=== PATIENT | male | born 1980 | race Caucasian/White ===

== ENCOUNTER 2016-11-11 23:39 | Emergency (ER) | payer SELFPAY ==
[~2016-11-11] VITALS: Ht 170.2 cm; Wt 70.0 kg
[~2016-11-11 23:39] MED LIST: HYDR-3533 PO; IBUP800T23 PO; METH500T3 PO
--- NOTE | 2016-11-11 23:42 | PD ---
HPI Chief Complaint: intoxicated Time Seen by Provider: 23:42 Travel History International Travel<30 days: No Contact w/Intl Traveler<30days: No Traveled to known affect area: No History of Present Illness HPI 36-year-old male came to the emergency room brought by EMS with history of heavy EtOH intoxication. He was found laying on the ground at a public place and was brought in. Patient has slurred speech and says that he only had 4 beers today. He is a chronic alcoholic. No obvious signs of trauma. [facility] Past Medical History Narrative Medical List of his past medical, surgical, social and family history as reviewed from the nursing note. Respiratory: Yes (PNEUMOTHORAX X3 BETWEEN AGE 14-20) Integumentary: Yes (CYSTS) Social History Alcohol Use: Yes (2-3 BEERS DAILY) Tobacco Use: Yes Substance Use: No Allergies-Medications (Allergen,Severity, Reaction): Coded Allergies: No Known Allergies (Unverified , 09/17/15) Comments No known drug allergies. Reported Meds & Prescriptions Reported Meds & Active Scripts Active Lortab 5 mg/325 mg (Hydrocodone/Acetaminophen 5 mg/325 mg) 1 Tab 1 Tab PO Q4H PRN Ibuprofen 800 Mg Tab 800 Mg PO Q6H PRN Robaxin (Methocarbamol) 500 Mg Tab 500 Mg PO QID PRN Narrative Medication List of his home medications reviewed from the nursing note. Review of Systems Except as stated in HPI: all other systems reviewed are Neg Physical Exam Narrative GENERAL: Intoxicated, no obvious distress SKIN: Focused skin assessment warm/dry. HEAD: Atraumatic. Normocephalic. EYES: Pupils equal and round. No scleral icterus. No injection or drainage. ENT: No nasal bleeding or discharge. Mucous membranes pink and moist. NECK: Trachea midline. No JVD. CARDIOVASCULAR: Regular rate and rhythm. No murmur appreciated. RESPIRATORY: No accessory muscle use. Clear to auscultation. Breath sounds equal bilaterally. GASTROINTESTINAL: Abdomen soft, non-tender, nondistended. Hepatic and splenic margins not palpable. MUSCULOSKELETAL: No obvious deformities. No clubbing. No cyanosis. No edema. NEUROLOGICAL: Awake and alert. No obvious cranial nerve deficits. Motor grossly within normal limits. Normal speech. Unable to have a steady gait. PSYCHIATRIC: Appropriate mood and affect; insight and judgment normal. Data Data Last Documented VS Vital Signs Date Time Temp Pulse Resp B/P Pulse Ox O2 Delivery O2 Flow Rate FiO2 11/12/16 06:26 90 18 111/72 99 Room Air 11/12/16 04:36 98.4 Orders Complete Blood Count With Diff (11/11/16 23:45) Comprehensive Metabolic Panel (11/11/16 23:45) Alcohol (Ethanol) (11/11/16 23:45) Sodium Chlor 0.9% 1000 Ml Inj (Ns 1000 M (11/11/16 23:45) Thiamine Inj (Thiamine Inj) (11/11/16 23:45) Labs Laboratory Tests Test 11/11/16 23:55 White Blood Count 5.5 TH/MM3 Red Blood Count 5.02 MIL/MM3 Hemoglobin 13.1 GM/DL Hematocrit 39.7 % Mean Corpuscular Volume 79.2 FL Mean Corpuscular Hemoglobin 26.2 PG Mean Corpuscular Hemoglobin 33.1 % Concent Red Cell Distribution Width 16.9 % Platelet Count 171 TH/MM3 Mean Platelet Volume 7.9 FL Neutrophils (%) (Auto) 43.7 % Lymphocytes (%) (Auto) 41.8 % Monocytes (%) (Auto) 8.2 % Eosinophils (%) (Auto) 5.4 % Basophils (%) (Auto) 0.9 % Neutrophils # (Auto) 2.4 TH/MM3 Lymphocytes # (Auto) 2.3 TH/MM3 Monocytes # (Auto) 0.5 TH/MM3 Eosinophils # (Auto) 0.3 TH/MM3 Basophils # (Auto) 0.0 TH/MM3 CBC Comment DIFF FINAL Differential Comment Sodium Level 144 MEQ/L Potassium Level 3.7 MEQ/L Chloride Level 108 MEQ/L Carbon Dioxide Level 26.8 MEQ/L Anion Gap 9 MEQ/L Blood Urea Nitrogen 7 MG/DL Creatinine 0.70 MG/DL Estimat Glomerular Filtration 128 ML/MIN Rate Random Glucose 87 MG/DL Calcium Level 8.3 MG/DL Total Bilirubin 0.2 MG/DL Aspartate Amino Transf 54 U/L (AST/SGOT) Alanine Aminotransferase 41 U/L (ALT/SGPT) Alkaline Phosphatase 116 U/L Total Protein 8.5 GM/DL Albumin 3.9 GM/DL Ethyl Alcohol Level 483 MG/DL [facility] Medical Decision Making Medical Screen Exam Complete: Yes Emergency Medical Condition: Yes Medical Record Reviewed: Yes Differential Diagnosis Acute alcohol intoxication Narrative Course 1:18 AM blood alcohol level is back and is extremely high. Rest of the blood test result is back and within acceptable limits. Patient is getting a liter IV fluid bolus and IV thiamine. He will stay in the emergency department until he is clinically sober. Procedures EKG Prior to Arrival: No Diagnosis Primary Impression: Acute alcohol intoxication Qualified Code: F10.929 - Acute alcohol intoxication, with unspecified complication Disposition: 01 DISCHARGE HOME Condition: Stable Vin Babcock MD Nov 11, 2016 23:42
[2016-11-11] MEDS ORDERED: THIAMINE INJ 100 MG in SODIUM CHLORIDE 0.9% INJ 100 ML IV ONE (23:45)
[2016-11-11] MEDS ORDERED: SODIUM CHLOR 0.9% 1000 ML INJ 1,000 ML IV ONE (23:45)
[2016-11-12] VITALS: BP 133/82; PULSE 91; RESP 18; TEMP 98.5; O2SAT 99
[2016-11-12 00:25] LABS: AUTOMATED NEUTROPHIL # 2.4 TH/MM3 (1.8-7.7); BASOPHIL % 0.9 % (0.0-2.0); EOSINOPHIL # 0.3 TH/MM3 (0-0.4); EOSINOPHIL % 5.4 % (0.0-4.0); HEMATOCRIT 39.7 % (39.0-51.0); HEMO FLAGS DIFF FINAL; LYMPH % 41.8 % (9.0-44.0); LYMPHOCYTE # 2.3 TH/MM3 (1.0-4.8); MEAN CELL VOLUME 79.2 FL (80.0-100.0); MEAN CORPUSCULAR HEMOGLOBIN 26.2 PG (27.0-34.0); MEAN CORPUSCULAR HGB CONC 33.1 % (32.0-36.0); MONO % 8.2 % (0.0-8.0); NEUT % 43.7 % (16.0-70.0); PLATELET COUNT 171 TH/MM3 (150-450); RED BLOOD COUNT 5.02 MIL/MM3 (4.50-5.90); RED CELL DISTRIBUTION WIDTH 16.9 % (11.6-17.2); WHITE BLOOD COUNT 5.5 TH/MM3 (4.0-11.0)
[2016-11-12 00:40] LABS: ANION GAP 9 MEQ/L (5-15); AST (GOT) 54 U/L (15-37); BICARBONATE 26.8 MEQ/L (21.0-32.0); BLOOD UREA NITROGEN 7 MG/DL (7-18); CHLORIDE 108 MEQ/L (98-107); GLOMERULAR FILTRATION RATE 128 ML/MIN (>89); POTASSIUM 3.7 MEQ/L (3.5-5.1); SODIUM (NA) 144 MEQ/L (136-145)
[2016-11-12 00:41] LABS: ALT (GPT) 41 U/L (12-78)
[2016-11-12 00:45] LABS: ALKALINE PHOSPHATASE 116 U/L (45-117); TOTAL BILIRUBIN ADULT 0.2 MG/DL (0.2-1.0)
[2016-11-12 04:36] VITALS: BP 129/77; PULSE 87; RESP 20; TEMP 98.4; O2SAT 98
[2016-11-12 06:26] VITALS: BP 111/72; PULSE 90; RESP 18; O2SAT 99
== END 2016-11-12 06:40 | disposition home or self-care (01) ==
LOC: NEPE 23:39
DX: F10.129 Alcohol abuse with intoxication, unspecified (principal); Z79.899 Other long term (current) drug therapy; Z72.0 Tobacco use
CPT/HCPCS: 80053; 80307; 85025; 96374; 99284; J3411; J7030

== ENCOUNTER 2016-12-20 11:29 | Emergency (ER) | payer SELFPAY ==
[~2016-12-20] VITALS: Ht 180.3 cm; Wt 60.0 kg
[2016-12-20 11:35] VITALS: BP 147/86; PULSE 110; RESP 15; TEMP 98.9; O2SAT 100
--- NOTE | 2016-12-20 11:38 | PD ---
Physical Exam Time Seen by Provider: 11:36 Narrative 36yo comes in via [facility] for c/o head injury after tripping over something the other days and hitting his head on the corner of a table. +LOC. +vomitng " once or twice." Patient seen in triage. VS reviewed. Patient awaiting bed placement. Data Data Last Documented VS Vital Signs Date Time Temp Pulse Resp B/P Pulse Ox O2 Delivery O2 Flow Rate FiO2 12/20/16 11:35 98.9 110 15 147/86 100 MDM Supervised Visit with ALISON: Stefany Perez Dec 20, 2016 11:38
--- NOTE | 2016-12-20 12:28 | RADRPT ---
EXAM DATE/TIME: 12/20/2016 12:12 [facility] COMPARISON: CT BRAIN W/O CONTRAST, July 01, 2014, 1:18. INDICATIONS : Hit jead on tabel a few days ago, positive LOC. RADIATION DOSE: 38.00 CTDIvol (mGy) MEDICAL HISTORY : None SURGICAL HISTORY : Surgery for collapsed lung ENCOUNTER: Initial ACUITY: 3 days PAIN SCALE: 6/10 LOCATION: cranial TECHNIQUE: Multiple contiguous axial images were obtained of the head. Using automated exposure control and adj ustment of the mA and/or kV according to patient size, radiation dose was kept as low as reasonably a chievable to obtain optimal diagnostic quality images. DICOM format image data is available electro nically for review and comparison. FINDINGS: CEREBRUM: The ventricles are normal for age. No evidence of midline shift, mass lesion, hemorrhage or acute in farction. No extra-axial fluid collections are seen. POSTERIOR FOSSA: The cerebellum and brainstem are intact. The 4th ventricle is midline. The cerebellopontine angle i s unremarkable. EXTRACRANIAL: The visualized portion of the orbits is intact. There is a large hematoma within the scalp. SKULL: The calvaria is intact. No evidence of skull fracture. CONCLUSION: 1. Large hematoma within the scalp along the right frontal and temporal region. 2. No acute intracranial abnormality. Brian Deal MD on December 20, 2016 at 12:26 Board Certified Radiologist. This report was verified electronically.
--- NOTE | 2016-12-20 12:32 | RADRPT ---
EXAM DATE/TIME: 12/20/2016 12:12 [facility] COMPARISON: No previous studies available for comparison. INDICATIONS : Hit heat on table a few days ago, positive LOC. RADIATION DOSE: 50.77 CTDIvol (mGy) MEDICAL HISTORY : None SURGICAL HISTORY : Surgery for right collpased lung ENCOUNTER: Initial ACUITY: 3 days PAIN SCORE: 4/10 LOCATION: facial TECHNIQUE: Volumetric scanning of the facial bones was performed. Using automated exposure control and adjustme nt of the mA and/or kV according to patient size, radiation dose was kept as low as reasonably achiev able to obtain optimal diagnostic quality images. DICOM format image data is available electronicall y for review and comparison. FINDINGS: ORBITS: The orbital and infraorbital osseous structures are intact. The retroconal structures have a normal configuration. No radiopaque foreign bodies are seen. NASAL BONE: The nasal bone and maxillary spine are intact ZYGOMATIC ARCHES: Symmetric without evidence of fracture. SINUSES: The maxillary, ethmoid and frontal sinuses are intact. No air-fluid levels seen. NASAL CAVITY: The nasal septum is intact and midline. The lacrimal ducts are intact. SOFT TISSUES: No radiopaque foreign bodies seen. Soft tissue swelling right orbit. INTRACRANIAL: No intracranial air seen. CRIBIFORM PLATE: Grossly intact. CONCLUSION: Soft tissue swelling right orbit without fracture. Lee Deal MD FACR on December 20, 2016 at 12:29 Board Certified Radiologist. This report was verified electronically.
[2016-12-20] MEDS ORDERED: LIDOCAINE HCL 1% 50 ML VIAL INFIL ONE (16:00)
--- NOTE | 2016-12-20 16:11 | PD ---
HPI Chief Complaint: Head Injury Time Seen by Provider: 15:25 Travel History International Travel<30 days: No Contact w/Intl Traveler<30days: No Traveled to known affect area: No History of Present Illness HPI 36yo M with alcohol abuse presents to the ED with right forehead swelling and right periorbital swelling after trip and fall 3 days ago. States positive LOC and vomited yesterday. Currently denies any fever, chest pain, sob, n/v, abdominal pain, focal weakness or numbness. Pt is still unable to open his right eye due to swelling. PFSH Past Medical History Anxiety: Yes Respiratory: Yes (PNEUMOTHORAX X3 BETWEEN AGE 14-20) Integumentary: Yes (CYSTS) Social History Alcohol Use: Yes (2-3 BEERS DAILY) Tobacco Use: Yes Substance Use: No Allergies-Medications (Allergen,Severity, Reaction): Coded Allergies: No Known Allergies (Unverified , 09/17/15) Reported Meds & Prescriptions Reported Meds & Active Scripts Active Tylenol (Acetaminophen) 325 Mg Tab 650 Mg PO Q6H PRN Bactrim DS (Sulfamethoxazole-Trimethoprim) 800-160 Mg Tab 1 Tab PO BID Review of Systems Except as stated in HPI: all other systems reviewed are Neg Physical Exam Narrative GENERAL: 36yo M in mild distress. SKIN: Focused skin assessment warm/dry. HEAD: 6cm by 6cm edema and ecchymoses with 1cm opening, draining purulent discharge. EYES: +marked periorbital ecchymoses and edema right eye. Unable to open his eye. Left pupil 3mm reactive to light. EOMI. ENT: No nasal bleeding or discharge. Mucous membranes pink and moist. NECK: Trachea midline. No JVD. CARDIOVASCULAR: Regular rate and rhythm. No murmur appreciated. RESPIRATORY: No accessory muscle use. Clear to auscultation. Breath sounds equal bilaterally. GASTROINTESTINAL: Abdomen soft, non-tender, nondistended. MUSCULOSKELETAL: No obvious deformities. No clubbing. No cyanosis. No edema. NEUROLOGICAL: Awake and alert. No obvious cranial nerve deficits. Motor grossly within normal limits. Normal speech. PSYCHIATRIC: Appropriate mood and affect; insight and judgment normal. Data Data Last Documented VS Vital Signs Date Time Temp Pulse Resp B/P Pulse Ox O2 Delivery O2 Flow Rate FiO2 12/20/16 16:20 15 12/20/16 11:35 98.9 110 147/[address] Brain W/O Iv Contrast(Rout) (12/20/16 ) Ct Facial Bones W/O Iv Cont (12/20/16 ) Lidocaine 1% Inj (50 Ml) (Xylocaine 1% I (12/20/16 16:00) Ed Poc Ultrasound (12/20/16 ) Sulfamet-Trimeth Ds 800-160 Mg (Bactrim (12/20/16 16:45) Oxycodone-Acetamin 5-325 Mg (Percocet (12/20/16 16:45) Tetanus/Diphtheria Tox Adult (Tetanus/Di (12/20/16 17:00) Mandatory Outpatient Referral (12/20/16 17:01) MDM Medical Decision Making Medical Screen Exam Complete: Yes Emergency Medical Condition: Yes Differential Diagnosis Abscess vs. ICH vs. fracture Narrative Course 36yo M with ecchymoses and swelling in right forehead and eye after trip and fall [address] brain showed large right scalp hematoma. No acute intracranial abnormality. CT facial showed soft tissue swelling right orbit without fracture. Pt has an abscess in right forehead that is already draining. I attempted to express as much purulent discharge as possible after lidocaine through the opening pt already have. Due to location of the abscess, I wanted to admit the patient for IV antibiotics but pt refused to stay. Pt states he needs to leave within an hour and cannot stay for IV antibiotics now. Pt given 1 percocet and bactrim. Also given tetanus. Pt is to return in 24 hours for wound check and follow up with ophthalmology. Bedside ultrasound of right eye did not show any retinal detachment, lens dislocation or vitreous hemorrhage. Unable to examine eye otherwise because of the swollen eyelids. Placed mandatory referral for ophthalmology follow up with Dr. Aranda. Procedures Procedure Narrative INCISION AND DRAINAGE OF ABSCESS: The area was prepped and was sterilely draped. A subcutaneous wheal of 1 % Xylocaine with a total number 3mL was used to anesthetize the area properly. There is already 1cm opening that is draining purulent discharge. The abscess was drained, complex loculations were broken down, and as much hematoma evacuated as pt can tolerate. Cultures were obtained. Quarter inch iodoform packing was placed in the wound. Sterile dressing applied. Patient advised to have packing removed in 24-48hours. Emergency department ocular ultrasound was performed with patient consent. Right eye: Linear probe was used in the transverse and sagittal views of the orbit without evidence of retinal detachment, vitreous hemorrhage, or lens dislocation. Diagnosis Primary Impression: Abscess Referrals: Za Aranda MD call for appointment Right eye trauma Patient Instructions: General Instructions Departure Forms: Tests/Procedures Additional Instructions: Please follow up with ophthalmology in 1-2 days. Please return to the ED in 24- 48 hours for wound check. Med/Other Pt SpecificInfo: Prescription(s) given Scripts Acetaminophen (Tylenol)325 Mg [id number] Mg PO Q6H PRN (PAIN SCALE 1 TO 4) #20 TAB Ref 0 Prov:Anna Duncan DO 12/20/16 Sulfamethoxazole-Trimethoprim (Bactrim DS)800-160 Mg Tab1 Tab PO BID #14 TAB Ref 0 Prov:Anna Duncan DO 12/20/16 Disposition: 01 DISCHARGE HOME Condition: Stable Anna Duncan DO Dec 20, 2016 16:11
[2016-12-20] MEDS ORDERED: SULFAMETHOXAZOLE-TRIMETHOPRIM DS 800-160 MG TAB PO ONE (16:45)
[2016-12-20] MEDS ORDERED: oxyCODONE/ACETAMINOPHEN 5 MG/325 MG TAB PO ONE (16:45)
[2016-12-20] MEDS ORDERED: TYLE325T PO (16:50)
[2016-12-20] MEDS ORDERED: BACT800T5 PO (16:50)
[2016-12-20] MEDS ORDERED: TETANUS/DIPHTHERIA TOXOID ADULT 0.5 ML VIAL IM ONE (17:00)
== END 2016-12-20 17:37 | disposition home or self-care (01) ==
LOC: NEPD 11:29
DX: S05.91XA Unspecified injury of right eye and orbit, initial encounter (principal); W22.03XA Walked into furniture, initial encounter; L02.811 Cutaneous abscess of head [any part, except face]
CPT/HCPCS: 10061; 70450; 70486; 90471; 90714